=== PATIENT | male | born 1945 | race Caucasian/White ===

== ENCOUNTER → 2023-04-23 12:07 | Outpatient (CLI) | payer OTHER, SELFPAY ==
[2023-04-23 12:38] LABS: HEMOLYSIS < 15 (0-50); Potassium 5.4 mmol/L (3.4-5.1)
== END ==
PROVIDERS: Family Provider Family Medicine; Referring Provider Internal Medicine Cardiovascular Disease; Visit Provider Internal Medicine Cardiovascular Disease
DX: I10 Essential (primary) hypertension (principal)
CPT/HCPCS: 36415; 84132